=== PATIENT | male | born 1960 | race Two or more races ===

== ENCOUNTER → 2024-09-02 | Outpatient (CLI) | payer OTHER ==
[~2024-09-02] VITALS: Ht 170.2 cm; Wt 108.9 kg
[~2024-09-02] MED LIST: BENA40TA71; HYDR-1421
[2024-09-02] MEDS: REGADENOSON 0.4 MG/5 ML SYRG IV ONE ×3 (10:20→10:27)
--- NOTE | 2024-09-02 16:32 | DVHSR ---
APPROVED REPORT Exam: Nuclear Stress Test Indication: CAD BMI: 0 Medical History Medical History: HTN, CAD, SMOKER 20+ YEARS Stress Test Details Stress Test: Pharmacologic stress testing performed using 0.4 mg of regadenoson per 5 mL given IV ov er 10 seconds. HR Resting HR: 61 bpmMax Heart Rate (APMHR): 157.427402 bpm Max HR Achieved: 82 bpmTarget HR (85% APMHR): 133.549446 bpm % of APMHR: 52.23 Recovery HR: 66 bpm BP Resting BP: 150/77 mmHg Recovery BP: 150/74 mmHg ECG Resting ECG: Sinus Rhythm Clinical Reason for Termination: Completed protocol Stress ECG Conclusion normal lvef lvef 83% no severe ischemia noted limitd quality study decreased opacification on ar NM EXAM: Myocardial Perfusion REST/STRESS Imaging Protocol: Rest Tc-99m/Stress Tc-99m 1 day Resting Data Rest SPECT myocardial perfusion imaging was performed in supine position 60 minutes following the int ravenous injection of 12.9 mCi of Tc-99m Sestamibi. Time of rest injection: 08:50 Date: 09/02/2024 Time of rest imagin:50 Date: 09/02/2024 Administration Route: IV Administration Site: Left Wrist Pharmacologic Stress Pharmacologic stress test was performed by injecting Regadenoson 0.4 mg IV push followed by the intra venous injection of 34.4 mCi of Tc-99m Sestamibi. Time of stress injection: 10:20 Date: 09/02/2024 Time of stress imagin:20 Date: 09/02/2024 Administration Route: IV Administration Site: Left Hand Gated Stress SPECT was performed 60 minutes after stress injection. The images were gated to evaluate regional wall motion and calculate left ventricular ejection fracti on. Stress only was performed in the Supine position. Nuclear Conclusion Nuclear Findings: negative for ischemia normal lvef lvef 83% no severe ischemia noted limitd quality study decreased opacification on ar
== END | disposition home or self-care (01) ==
LOC: XYW 08:25
PROVIDERS: ATTEND Internal Medicine
DX: I25.10 Atherosclerotic heart disease of native coronary artery without angina pectoris (principal); I10 Essential (primary) hypertension; R93.1 Abnormal findings on diagnostic imaging of heart and coronary circulation; R06.02 Shortness of breath; F17.200 Nicotine dependence, unspecified, uncomplicated; Z68.36 Body mass index [BMI] 36.0-36.9, adult
CPT/HCPCS: 78452; 93017; A9500; J2785